=== PATIENT | male | born 1940 | race Caucasian/White ===

== ENCOUNTER 2020-02-12 17:04 | Inpatient (IN) | payer MEDICARE, BC ==
[~2020-02-12] VITALS: Ht 188 cm; Wt 76.2 kg
[~2020-02-12 17:04] MED LIST: atropine 1 MG/1 ML vial ONE; etomidate 2mg/ml inj. ONE; rocuronium 10mg/ml inj IV ONE
[2020-02-12] MEDS ORDERED: propofol 1000mg/100ml bottle 100 ML IV ONE (17:12)
[2020-02-12] MEDS ORDERED: midazolam 2 mg/2 ml injection ONE (17:12)
[2020-02-12] MEDS ORDERED: propofol 1000mg/100ml bottle 100 ML IV PRN ×2 (17:13→17:16)
[2020-02-12] MEDS ORDERED: MIDAZolam 5mg/ml 2ml vial IV ONE (17:15)
[2020-02-12] MEDS ORDERED: LIDOcaine 2% 10ml TOPICAL JELLY (Urojet) TP ONE (17:30)
[2020-02-12 17:42] LABS: BASOPHILS # (AUTO) 0.1 X10'3 (0-0.2); EOSINOPHILS # (AUTO) 0.2 X10'3 (0-0.9); EOSINOPHILS % (AUTO) 1.6 % (0-6); HEMATOCRIT 41.5 % (42.0-52.0); HEMOGLOBIN 13.2 g/dl (14.0-17.9); LYMPHOCYTES # (AUTO) 2.3 X10'3 (1.1-4.8); LYMPHOCYTES % (AUTO) 21.7 % (21-51); MEAN CORPUSCULAR HEMOGLOBIN 24.1 PG (27.0-31.0); MEAN CORPUSCULAR HGB CONC 31.9 g/dL (33.0-36.5); MEAN CORPUSCULAR VOLUME 75.6 FL (78-98); MEAN PLATELET VOLUME 9.9 FL (7.4-10.4); MONOCYTES % (AUTO) 9.6 % (2-12); NEUTROPHILS % (AUTO) 66.1 % (42-75); PLATELET COUNT 183 X10'3 (140-440); RED BLOOD COUNT 5.48 X10'6 (4.70-6.10); RED CELL DISTRIBUTION WIDTH 19.2 % (11.5-14.5); WHITE BLOOD COUNT 10.6 X10'3 (4.5-11.0)
[2020-02-12 17:50] LABS: ABG OXYGEN SATURATION 98.3 % (94-97); ABG PCO2 (T) 34.5 mmHg (35.0-48.0); ABG PO2 (T) 113.5 mmHg (75.0-100.0); FCOHb 1.3 % (0.0-3.9); FMetHb 0.1 % (0.0-1.5); FO2Hb 96.9 % (94-97); PATIENT TEMPERATURE 36.9; PEEP 5 cm H2O; RESPIRATORY RATE 18 b/min; TIDAL VOLUME 450 mL; TOTAL HEMOGLOBIN 13.3 G/dl (14.0-18.0)
[2020-02-12 17:51] LABS: PARTIAL THROMBOPLASTIN TIME 29 SECONDS (22-32)
[2020-02-12 18:03] LABS: ALANINE AMINOTRANSFERASE 45 U/L (12-78); ALBUMIN 2.4 G/DL (3.4-5.0); ALBUMIN/GLOBULIN RATIO 0.5 (1.1-1.5); ALKALINE PHOSPHATASE 129 IU/L (46-116); ANION GAP 7 (8-16); ASPARTATE AMINO TRANSFERASE 43 U/L (10-37); BILIRUBIN,TOTAL 1.3 MG/DL (0.1-1.0); BLOOD UREA NITROGEN 29 MG/DL (7-18); BUN/CREATININE RATIO 22.8 (5.4-32.0); CALCIUM 8.4 MG/DL (8.5-10.1); CHLORIDE 105 MMOL/L (99-107); CREATININE 1.27 MG/DL (0.60-1.10); ETHANOL < 0.010 GM/DL (0.0-0.010); GLUCOSE 113 MG/DL (70-104); MAGNESIUM 1.8 MG/DL (1.5-2.4); POTASSIUM 3.1 MMOL/L (3.5-5.1); SODIUM 140 MMOL/L (135-145); TOTAL CARBON DIOXIDE 28.2 MMOL/L (24-32); eGFR 55 ML/MIN
[2020-02-12 18:26] LABS: CLARITY,URINE SLIGHTLY CLOUDY (Clear); COLOR,URINE STRAW (Yellow); GLUCOSE, URINE NEGATIVE (Neg); KETONES,URINE NEGATIVE (Neg); LEUKOCYTE ESTERASE ,URINE NEGATIVE (Neg); NITRITES, URINE NEGATIVE (Neg); OCCULT BLOOD,URINE TRACE-INTACT (Neg); PROTEIN,URINE NEGATIVE (Neg); UROBILINOGEN,URINE 0.2 E.U/dL (0.2-1.0)
[2020-02-12 18:29] LABS: UA COLLECTION TYPE FOLEY CATH
[2020-02-12 18:31] LABS: HYALINE CASTS 0-3 /LPF (NEGATIVE); MUCUS STRANDS FEW /LPF (Neg); SQUAMOUS EPITHELIAL CELL,UR MODERATE /LPF (FEW)
[2020-02-12 18:32] LABS: BACTERIA,URINE FEW /HPF (Neg); WBC,URINE 0-4 /HPF (0-4)
[2020-02-12 18:33] LABS: URINE AMPHETAMINE SCREEN NEGATIVE (Neg); URINE BARBITUATE SCREEN NEGATIVE (Neg); URINE BENZODIAZEPINES SCREEN POSITIVE (Neg); URINE CANNABINOID SCREEN NEGATIVE (Neg); URINE COCAINE SCREEN NEGATIVE (Neg); URINE METHADONE SCREEN POSITIVE (Neg); URINE OPIATE SCREEN NEGATIVE (Neg); URINE PHENCYCLIDINE SCREEN NEGATIVE (Neg)
[2020-02-12 18:35] LABS: ANISOCYTOSIS 2+; MICROCYTOSIS 1+; PLATELET ESTIMATE NORMAL
--- NOTE | 2020-02-12 18:37 | NUR ---
Graeme ([facility]) [phone] [facility]
[2020-02-12] MEDS ORDERED: ASPI-1053 PO (19:03)
[2020-02-12] MEDS ORDERED: AMIO200T27 PO (19:03)
[2020-02-12] MEDS ORDERED: PREG150C PO (19:03)
[2020-02-12] MEDS ORDERED: LOSA50TA3 PO (19:03)
[2020-02-12] MEDS ORDERED: METH-603 PO (19:03)
[2020-02-12] MEDS ORDERED: FLO0.4C PO (19:03)
[2020-02-12] MEDS ORDERED: CARV6.253 PO (19:03)
[2020-02-12] MEDS ORDERED: APIX5TAB3 PO (19:03)
--- NOTE | 2020-02-12 19:34 | NUR ---
called out to CT to look at the patients central line, as it was oozing. Pressure held. ELENO Kimball with pt. Dr. Daniels informed. Labs reviewed.
--- NOTE | 2020-02-12 19:45 | NUR ---
PATIENT'S CENTRAL LINE WAS WEEPING BLOOD. DR RUTHERFORD IS AWARE. DRESSING CHANGE ORDERED.
--- NOTE | 2020-02-12 20:16 | NUR ---
LAC IV TAGADERM REMOVED, IV SITE CLEANSED AND FRESH TAGADERM APPLIED ALONG WITH A SL Y PORT TUBING. CENTRAL LINE DRESSING CHANGE TAKEN DOWN AND CLEANSED PER STERILE TECHNIQUE WITH A FRESH TAGADERM.
--- NOTE | 2020-02-12 20:36 | NUR ---
AND DAUGHTER AT THE [facility] SPEAKING WITH JUNE YANELIS
--- NOTE | 2020-02-12 20:37 | NUR ---
FROILAN VILLAGOMEZ( DAUGHTER) BEST CONTACT DT WIFES ROMEL
[2020-02-12] MEDS ORDERED: midazolam 100mg in NS 100ml 100 ML IV PRN (20:54)
[2020-02-12] MEDS ORDERED: acetaminophen 650mg rectal suppository RC PRN (20:55)
[2020-02-12] MEDS ORDERED: furosemide 10 MG/1 ML 10ml inj IV ONE (20:55)
[2020-02-12] MEDS ORDERED: acetaminophen 325mg tablet PO PRN ×2 (20:55)
[2020-02-12] MEDS ORDERED: ondansetron/PF 4mg/2ml inj IV PRN (20:55)
[2020-02-12] MEDS ORDERED: magnesium 2GM in 50ml NS 50 ML IV PRN (20:55)
[2020-02-12] MEDS ORDERED: pantoprazole 40 MG vial IV ONE (20:55)
[2020-02-12] MEDS ORDERED: amiodarone 200mg tablet PO SCH (21:05)
[2020-02-12] MEDS ORDERED: carvedilol 6.25mg tablet PO SCH (21:05)
[2020-02-12] MEDS ORDERED: apixaban 5mg tablet PO SCH (21:05)
[2020-02-12] MEDS ORDERED: methadone 10mg tablet PO PRN (21:10)
[2020-02-12 21:27] LABS: HEMOGLOBIN A1C 6.1 % (4.5-6.2)
[2020-02-12 21:50] VITALS: BP 147/104
[2020-02-12 22:00] VITALS: BP 133/93
--- NOTE | 2020-02-12 22:10 | NUR ---
RECEIVED REPORT FROM JHONNY JOHANSEN PRIOR TO PT BEING BROUGHT UP FROM ED AND WAS ABLE TO ASK QUESTIONS. PT ARRIVED TO CICU FROM ED AROUND 2139, TRANSFERRED TO PULMONARY BED, PLACED ON OUR MONITOR AND VENT. IVF INFUSING PER MD'S ORDERS. PT IS RESTLESS AND PULLING AT RESTRAINTS BUT MAKES EYE CONTACT, TITRATING PROPOFOL FOR VENTILATOR SYNCHRONY.
[2020-02-12] MEDS: magnesium 4gm in 100ml NS 100 ML IV PRN (22:21)
[2020-02-12] MEDS: potassium Cl 20mEq/100mL bag 100 ML IV PRN ×2 (22:22→23:38)
[2020-02-12 22:30] VITALS: BP 132/97
[2020-02-12] MEDS: FENTANYL-0.9 % NACL/PF 100 ML IV PRN (22:44)
[2020-02-12 23:00] VITALS: BP 127/91
[2020-02-12] MEDS ORDERED: albuterol 2.5 MG/3 ML nebule NEB SCH (23:00)
[2020-02-12] MEDS: ipratropium/albuterol 3ml nebule NEB SCH (23:14)
[2020-02-13] VITALS (28 sets, daily range): BP systolic 98–196; BP diastolic 58–111
[2020-02-13] MEDS ORDERED: DOPamine 400mg/D5W 250ml 250 ML IV ONE (00:42)
[2020-02-13] MEDS: DOPamine 400mg/D5W 250ml 250 ML IV SCH ×2 (00:49→16:59)
[2020-02-13] MEDS: potassium Cl 20mEq/100mL bag 100 ML IV PRN ×7 (00:49→16:39)
--- NOTE | 2020-02-13 01:00 | NUR ---
AROUND 40 THE PT CONVERTED FROM AFIB TO SINUS YOHAN WITH A RATE IN THE LOW 30's. ATROPINE WAS GIVEN EMERGENTLY WHICH BROUGHT HIS HEART RATE (HR) UP TO THE 40's. JUNE TREE SCOUT ARRIVED AT BEDSIDE AND ORDERED A DOPAMINE DRIP TO BE STARTED WHICH WAS DONE BRINGING THE PT'S HR UP TO THE 60's-80's NSR. DURING THE EPISODE OF BRADYCARDIA THE PT'S SBP DID NOT GO BELOW 90mmHg. WILL CONTINUE TO MONITOR
[2020-02-13] MEDS ORDERED: atropine 0.1mg/ml 10ml syringe IV ONE (01:35)
[2020-02-13] MEDS: ipratropium/albuterol 3ml nebule NEB SCH ×5 (03:30→20:45)
[2020-02-13 03:36] LABS: BASOPHILS # (AUTO) 0.1 X10'3 (0-0.2); BASOPHILS % (AUTO) 0.7 % (0-1); EOSINOPHILS # (AUTO) 0.1 X10'3 (0-0.9); EOSINOPHILS % (AUTO) 0.8 % (0-6); HEMATOCRIT 43.4 % (42.0-52.0); HEMOGLOBIN 13.9 g/dl (14.0-17.9); LYMPHOCYTES # (AUTO) 1.5 X10'3 (1.1-4.8); LYMPHOCYTES % (AUTO) 15.1 % (21-51); MEAN CORPUSCULAR HEMOGLOBIN 24.1 PG (27.0-31.0); MEAN CORPUSCULAR VOLUME 75.1 FL (78-98); MEAN PLATELET VOLUME 9.2 FL (7.4-10.4); MONOCYTES # (AUTO) 0.8 X10'3 (0-0.9); MONOCYTES % (AUTO) 7.5 % (2-12); NEUTROPHILS # (AUTO) 7.6 X10'3 (1.8-7.7); NEUTROPHILS % (AUTO) 75.9 % (42-75); PLATELET COUNT 174 X10'3 (140-440); RED BLOOD COUNT 5.77 X10'6 (4.70-6.10); RED CELL DISTRIBUTION WIDTH 19.2 % (11.5-14.5); WHITE BLOOD COUNT 10.1 X10'3 (4.5-11.0)
[2020-02-13 03:49] LABS: ALANINE AMINOTRANSFERASE 38 U/L (12-78); ALBUMIN 2.3 G/DL (3.4-5.0); ALBUMIN/GLOBULIN RATIO 0.5 (1.1-1.5); ALKALINE PHOSPHATASE 119 IU/L (46-116); ANION GAP 2 (8-16); ASPARTATE AMINO TRANSFERASE 29 U/L (10-37); BILIRUBIN,TOTAL 1.5 MG/DL (0.1-1.0); BLOOD UREA NITROGEN 22 MG/DL (7-18); BUN/CREATININE RATIO 23.9 (5.4-32.0); CALCIUM 8.2 MG/DL (8.5-10.1); CHLORIDE 104 MMOL/L (99-107); CREATININE 0.92 MG/DL (0.60-1.10); GLUCOSE 111 MG/DL (70-104); MAGNESIUM 2.6 MG/DL (1.5-2.4); POTASSIUM 4.4 MMOL/L (3.5-5.1); SODIUM 139 MMOL/L (135-145); TOTAL CARBON DIOXIDE 32.8 MMOL/L (24-32); TOTAL PROTEIN 6.9 G/DL (6.4-8.2); TROPONIN I < 0.04 NG/ML (0.0-0.05); eGFR 80 ML/MIN
[2020-02-13 03:56] LABS: ABG BASE EXCESS 7.4 mmol/L (-2.0-2.0); ABG HCO3 32.4 mmol/L (22.0-26.0); ABG OXYGEN SATURATION 91.9 % (94-97); ABG PCO2 (T) 45.1 mmHg (35.0-48.0); ALLEN'S TEST POSITIVE; FMetHb 0.1 % (0.0-1.5); FO2Hb 90.9 % (94-97); PATIENT TEMPERATURE 36.3; PEEP 5 cm H2O; RESPIRATORY RATE 14 b/min; TIDAL VOLUME 450 mL
[2020-02-13 04:06] LABS: PLATELET ESTIMATE NORMAL
[2020-02-13 04:07] LABS: ANISOCYTOSIS 2+; MICROCYTOSIS 1+
[2020-02-13] MEDS: normal saline 1000ml 1,000 ML IV SCH ×2 (04:16→14:10)
[2020-02-13 04:20] LABS: PARTIAL THROMBOPLASTIN TIME 31 SECONDS (22-32)
--- NOTE | 2020-02-13 06:15 | NUR ---
Patient in room CICU 2010. I have received report from RN and had the opportunity to ask questions and assume patient care.
[2020-02-13] MEDS ORDERED: acetaminophen 325mg/10.15ml oral unit dose solution OGT PRN ×2 (06:36→06:37)
--- NOTE | 2020-02-13 06:41 | NUR ---
Problems reprioritized. Patient report given, questions answered & plan of care reviewed with SHIRLENE JOHANSEN.
[2020-02-13] MEDS: docusate sodium 100mg/10ml UD cup OGT SCH ×2 (07:32→20:21)
[2020-02-13] MEDS: pantoprazole 40 MG vial IV SCH (07:32)
[2020-02-13] MEDS: pregabalin 75mg capsule OGT SCH ×2 (07:33→20:22)
[2020-02-13] MEDS: apixaban 5mg tablet OGT SCH ×2 (07:33→20:22)
[2020-02-13] MEDS: amiodarone 200mg tablet OGT SCH ×2 (07:34→20:00)
[2020-02-13] MEDS: tamsulosin 0.4mg capsule PO SCH ×2 (07:34→08:00)
[2020-02-13] MEDS ORDERED: aspirin 81mg tab.chew OGT SCH (08:00)
[2020-02-13] MEDS ORDERED: losartan 50mg tablet OGT SCH (08:00)
[2020-02-13] MEDS: FENTANYL-0.9 % NACL/PF 100 ML IV PRN (09:29)
--- NOTE | 2020-02-13 11:02 | NUR ---
Patient intubated in ED after cardiac arrest at home; per Ornamental Painter at rounds may extubate patient today. Patient with versed, fentanyl, dopamine; received lasix with 5 liters off; has low Juan Carlos of 11; R/L lower calf reddened; BLE 3+ edema. Recommend: 1. If patient not extubated and if with prolonged intubation may benefit from nutrition support with vital AF at 60 ml/hr 2. When extubated, advance diet as medically indicated to heart healthy 3. wt per rx Addendum: 02/13/20 at [address] Amended: Links added.
[2020-02-13 11:30] LABS: ALANINE AMINOTRANSFERASE 33 U/L (12-78); ALBUMIN/GLOBULIN RATIO 0.5 (1.1-1.5); ALKALINE PHOSPHATASE 103 IU/L (46-116); ANION GAP 4 (8-16); ASPARTATE AMINO TRANSFERASE 23 U/L (10-37); BILIRUBIN,TOTAL 1.6 MG/DL (0.1-1.0); BLOOD UREA NITROGEN 19 MG/DL (7-18); BUN/CREATININE RATIO 20.7 (5.4-32.0); CALCIUM 7.7 MG/DL (8.5-10.1); CHLORIDE 104 MMOL/L (99-107); CREATININE 0.92 MG/DL (0.60-1.10); GLUCOSE 96 MG/DL (70-104); PHOSPHORUS 2.9 MG/DL (2.3-4.5); POTASSIUM 3.3 MMOL/L (3.5-5.1); SODIUM 140 MMOL/L (135-145); TOTAL CARBON DIOXIDE 31.9 MMOL/L (24-32); TOTAL PROTEIN 6.3 G/DL (6.4-8.2); eGFR 80 ML/MIN
[2020-02-13] MEDS ORDERED: racepinephrine 11.25mg/0.5ml nebule NEB PRN (12:00)
[2020-02-13] MEDS ORDERED: ipratropium/albuterol 3ml nebule NEB PRN (12:00)
[2020-02-13] MEDS: magnesium 4gm in 100ml NS 100 ML IV PRN (12:38)
--- NOTE | 2020-02-13 13:15 | NUR ---
PT extubated at 1315. Placed on 2L NC. NO difficulties.
--- NOTE | 2020-02-13 18:18 | NUR ---
Problems reprioritized. Patient report given, questions answered & plan of care reviewed with CLAUDIA.
--- NOTE | 2020-02-13 18:54 | NUR ---
Patient in room CICU 2010. I have received report from Leena JOHANSEN and had the opportunity to ask questions and assume patient care.
[2020-02-13] MEDS ORDERED: amiodarone 150mg/dext, iso-os 100 ML IV ONE ×2 (19:43→19:50)
[2020-02-13] MEDS ORDERED: amiodarone/D5 360MG/200ML BAG 200 ML IV SCH (19:46)
--- NOTE | 2020-02-13 19:55 | NUR ---
Pt went into pulseless V-tach, limited code of no compressions. OR RN at bedside at start of event. pt was bagged to deliver breathes by RT. defibrillated patient at 200J 1x and ROSC achieved. ER MD arrived and patient achieved ROSC prior to arrival. Pt is A/O and able to follow commands. Pt speaking and reports no discomfort. will continue to frequent rounding and monitoring.
[2020-02-13 19:57] LABS: ALANINE AMINOTRANSFERASE 29 U/L (12-78); ALBUMIN 1.9 G/DL (3.4-5.0); ALBUMIN/GLOBULIN RATIO 0.5 (1.1-1.5); ALKALINE PHOSPHATASE 98 IU/L (46-116); ANION GAP 4 (8-16); ASPARTATE AMINO TRANSFERASE 19 U/L (10-37); BILIRUBIN,TOTAL 1.5 MG/DL (0.1-1.0); BLOOD UREA NITROGEN 19 MG/DL (7-18); BUN/CREATININE RATIO 18.1 (5.4-32.0); CALCIUM 7.8 MG/DL (8.5-10.1); CHLORIDE 105 MMOL/L (99-107); CREATININE 1.05 MG/DL (0.60-1.10); GLUCOSE 76 MG/DL (70-104); MAGNESIUM 2.8 MG/DL (1.5-2.4); POTASSIUM 4.6 MMOL/L (3.5-5.1); SODIUM 140 MMOL/L (135-145); TOTAL CARBON DIOXIDE 31.4 MMOL/L (24-32); TOTAL PROTEIN 5.9 G/DL (6.4-8.2); eGFR 68 ML/MIN
[2020-02-14] VITALS (24 sets, daily range): BP systolic 107–148; BP diastolic 56–76
[2020-02-14] MEDS: normal saline 1000ml 1,000 ML IV SCH ×2 (00:10→15:44)
[2020-02-14] MEDS: piperacillin/tazo 3.375gm/50ml 50 ML IV SCH ×3 (00:15→15:44)
[2020-02-14] MEDS ORDERED: mineral oil/petrolatum ophthal oint EACHEYE SCH (02:00)
[2020-02-14 02:46] LABS: BASOPHILS % (AUTO) 0.4 % (0-1); EOSINOPHILS % (AUTO) 0.2 % (0-6); HEMATOCRIT 36.6 % (42.0-52.0); HEMOGLOBIN 11.8 g/dl (14.0-17.9); LYMPHOCYTES # (AUTO) 1.1 X10'3 (1.1-4.8); LYMPHOCYTES % (AUTO) 9.5 % (21-51); MEAN CORPUSCULAR HEMOGLOBIN 24.3 PG (27.0-31.0); MEAN CORPUSCULAR HGB CONC 32.2 g/dL (33.0-36.5); MEAN CORPUSCULAR VOLUME 75.5 FL (78-98); MEAN PLATELET VOLUME 9.5 FL (7.4-10.4); MONOCYTES # (AUTO) 0.9 X10'3 (0-0.9); NEUTROPHILS # (AUTO) 9.2 X10'3 (1.8-7.7); NEUTROPHILS % (AUTO) 81.9 % (42-75); PLATELET COUNT 152 X10'3 (140-440); RED BLOOD COUNT 4.84 X10'6 (4.70-6.10); RED CELL DISTRIBUTION WIDTH 19.4 % (11.5-14.5); WHITE BLOOD COUNT 11.2 X10'3 (4.5-11.0)
[2020-02-14 02:57] LABS: ALANINE AMINOTRANSFERASE 24 U/L (12-78); ALBUMIN 1.8 G/DL (3.4-5.0); ALBUMIN/GLOBULIN RATIO 0.5 (1.1-1.5); ALKALINE PHOSPHATASE 89 IU/L (46-116); ANION GAP 4 (8-16); ASPARTATE AMINO TRANSFERASE 17 U/L (10-37); BILIRUBIN,TOTAL 1.2 MG/DL (0.1-1.0); BLOOD UREA NITROGEN 20 MG/DL (7-18); BUN/CREATININE RATIO 18.9 (5.4-32.0); CALCIUM 7.8 MG/DL (8.5-10.1); CHLORIDE 106 MMOL/L (99-107); CREATININE 1.06 MG/DL (0.60-1.10); GLUCOSE 89 MG/DL (70-104); MAGNESIUM 2.5 MG/DL (1.5-2.4); PHOSPHORUS 3.3 MG/DL (2.3-4.5); SODIUM 141 MMOL/L (135-145); TOTAL CARBON DIOXIDE 30.9 MMOL/L (24-32); TOTAL PROTEIN 5.6 G/DL (6.4-8.2); eGFR 68 ML/MIN
[2020-02-14 03:33] LABS: ANISOCYTOSIS 2+; ELLIPTOCYTES FEW; MICROCYTOSIS 1+; PLATELET ESTIMATE NORMAL; POLYCHROMASIA FEW
[2020-02-14] MEDS: potassium Cl 20mEq/100mL bag 100 ML IV PRN ×2 (03:38→06:00)
[2020-02-14] MEDS: ipratropium/albuterol 3ml nebule NEB SCH ×4 (04:17→20:52)
--- NOTE | 2020-02-14 06:25 | NUR ---
Problems reprioritized. Patient report given, questions answered & plan of care reviewed with SHIRLENE JOHANSEN.
[2020-02-14] MEDS ORDERED: acetaminophen 325mg/10.15ml oral unit dose solution PO PRN ×2 (08:29)
[2020-02-14] MEDS ORDERED: amiodarone 200mg tablet PO SCH (08:30)
[2020-02-14] MEDS ORDERED: apixaban 5mg tablet PO SCH (08:30)
[2020-02-14] MEDS ORDERED: aspirin 81mg tab.chew PO SCH (08:31)
[2020-02-14] MEDS: amiodarone 200mg tablet PO SCH ×3 (08:32→22:30)
[2020-02-14] MEDS: docusate sodium 100mg/10ml UD cup PO SCH ×2 (08:37→20:25)
[2020-02-14] MEDS: aspirin 81mg tab.chew PO SCH (08:37)
[2020-02-14] MEDS: tamsulosin 0.4mg capsule PO SCH (08:42)
[2020-02-14] MEDS: pantoprazole 40 MG vial IV SCH (08:42)
[2020-02-14] MEDS: losartan 50mg tablet PO SCH (08:43)
[2020-02-14] MEDS: pregabalin 75mg capsule PO SCH ×2 (08:43→20:12)
[2020-02-14] MEDS: apixaban 5mg tablet PO SCH ×2 (08:54→20:11)
[2020-02-14] MEDS: DOPamine 400mg/D5W 250ml 250 ML IV SCH (09:08)
[2020-02-14] MEDS: lactobacillus rhamnosus 10,000 MMU CELLS/CAPSULE PO SCH (20:11)
[2020-02-14] MEDS ORDERED: lactulose 20gm/30ml cup PO PRN (20:55)
[2020-02-14] MEDS ORDERED: bisacodyl 10mg suppository rectal RC PRN (20:55)
--- NOTE | 2020-02-14 23:21 | NUR ---
Dr Rocio Davies phoned nurses station. Patient to have AICD placed in AM. Physician updated.
[2020-02-14 23:29] LABS: MAGNESIUM 1.8 MG/DL (1.5-2.4); POTASSIUM 3.6 MMOL/L (3.5-5.1)
[2020-02-15] VITALS (25 sets, daily range): BP systolic 123–169; BP diastolic 7–87
[2020-02-15] MEDS: piperacillin/tazo 3.375gm/50ml 50 ML IV SCH ×4 (00:04→23:45)
[2020-02-15] MEDS: potassium Cl 20mEq/100mL bag 100 ML IV PRN ×5 (00:04→09:17)
[2020-02-15] MEDS: DOPamine 400mg/D5W 250ml 250 ML IV SCH (01:17)
[2020-02-15] MEDS: normal saline 1000ml 1,000 ML IV SCH ×3 (01:19→15:50)
[2020-02-15] MEDS: magnesium 4gm in 100ml NS 100 ML IV PRN (01:57)
[2020-02-15] MEDS: ipratropium/albuterol 3ml nebule NEB SCH ×4 (02:56→20:41)
[2020-02-15 05:47] LABS: BASOPHILS # (AUTO) 0.1 X10'3 (0-0.2); BASOPHILS % (AUTO) 0.6 % (0-1); EOSINOPHILS # (AUTO) 0.2 X10'3 (0-0.9); EOSINOPHILS % (AUTO) 2.1 % (0-6); HEMATOCRIT 35.1 % (42.0-52.0); HEMOGLOBIN 11.4 g/dl (14.0-17.9); LYMPHOCYTES # (AUTO) 1.5 X10'3 (1.1-4.8); LYMPHOCYTES % (AUTO) 16.8 % (21-51); MEAN CORPUSCULAR HEMOGLOBIN 24.3 PG (27.0-31.0); MEAN CORPUSCULAR HGB CONC 32.3 g/dL (33.0-36.5); MEAN CORPUSCULAR VOLUME 75.2 FL (78-98); MEAN PLATELET VOLUME 9.5 FL (7.4-10.4); MONOCYTES # (AUTO) 0.8 X10'3 (0-0.9); MONOCYTES % (AUTO) 8.4 % (2-12); NEUTROPHILS # (AUTO) 6.4 X10'3 (1.8-7.7); NEUTROPHILS % (AUTO) 72.1 % (42-75); PLATELET COUNT 159 X10'3 (140-440); RED BLOOD COUNT 4.67 X10'6 (4.70-6.10); RED CELL DISTRIBUTION WIDTH 19.9 % (11.5-14.5); WHITE BLOOD COUNT 8.9 X10'3 (4.5-11.0)
[2020-02-15 05:56] LABS: PARTIAL THROMBOPLASTIN TIME 33 SECONDS (22-32)
[2020-02-15 06:34] LABS: ALANINE AMINOTRANSFERASE 25 U/L (12-78); ALBUMIN 1.7 G/DL (3.4-5.0); ALBUMIN/GLOBULIN RATIO 0.4 (1.1-1.5); ALKALINE PHOSPHATASE 90 IU/L (46-116); ANION GAP 5 (8-16); ASPARTATE AMINO TRANSFERASE 24 U/L (10-37); BILIRUBIN,TOTAL 1.2 MG/DL (0.1-1.0); BLOOD UREA NITROGEN 18 MG/DL (7-18); BUN/CREATININE RATIO 20.5 (5.4-32.0); CALCIUM 7.6 MG/DL (8.5-10.1); CHLORIDE 107 MMOL/L (99-107); CREATININE 0.88 MG/DL (0.60-1.10); GLUCOSE 73 MG/DL (70-104); MAGNESIUM 2.5 MG/DL (1.5-2.4); PHOSPHORUS 2.3 MG/DL (2.3-4.5); POTASSIUM 4.3 MMOL/L (3.5-5.1); SODIUM 139 MMOL/L (135-145); TOTAL CARBON DIOXIDE 26.7 MMOL/L (24-32); TOTAL PROTEIN 5.6 G/DL (6.4-8.2); eGFR 84 ML/MIN
--- NOTE | 2020-02-15 06:37 | NUR ---
Problems reprioritized. Patient report given, questions answered & plan of care reviewed with Dayanara JOHANSEN.
--- NOTE | 2020-02-15 06:40 | NUR ---
Patient in room [facility] 2010. I have received report from Tanvi JOHANSEN and had the opportunity to ask questions and assume patient care. Addendum: 02/15/20 at 0640 by Dayanara Haddad RN Amended: Links added.
[2020-02-15 07:30] LABS: HYPOCHROMASIA 1+; PLATELET ESTIMATE NORMAL
[2020-02-15 07:31] LABS: ANISOCYTOSIS 2+; ELLIPTOCYTES FEW; MICROCYTOSIS 1+; SCHISTOCYTES FEW; TARGET CELLS FEW
[2020-02-15 07:32] LABS: TEAR DROP CELLS FEW
[2020-02-15] MEDS: amiodarone 200mg tablet PO SCH ×2 (07:35→19:48)
[2020-02-15] MEDS: pantoprazole 40 MG vial IV SCH (07:35)
[2020-02-15] MEDS: docusate sodium 100mg/10ml UD cup PO SCH ×2 (07:35→19:47)
[2020-02-15] MEDS: aspirin 81mg tab.chew PO SCH (07:35)
[2020-02-15] MEDS: lactobacillus rhamnosus 10,000 MMU CELLS/CAPSULE PO SCH ×2 (07:36→19:47)
[2020-02-15] MEDS: tamsulosin 0.4mg capsule PO SCH (07:36)
[2020-02-15] MEDS: losartan 50mg tablet PO SCH (07:36)
[2020-02-15] MEDS: apixaban 5mg tablet PO SCH ×2 (07:36→19:48)
[2020-02-15] MEDS: pregabalin 75mg capsule PO SCH ×2 (07:36→19:47)
--- NOTE | 2020-02-15 08:37 | NUR ---
Dr. Lu Davies called and told RN he would be in at 1000 to talk about AICD placement with pt. Pt's daughter Angelita called twice this morning to get updated from RN. RN told Angelita she would ask Dr. Davies to call her and update her as well.
[2020-02-15] MEDS ORDERED: ceFAZolin 2gm in dextrose, iso 50 ML IV ONE (09:36)
[2020-02-15] MEDS ORDERED: LIDOcaine 1% W/epiNEPHrine 1:100,000 20ml vial ONE (09:36)
[2020-02-15] MEDS ORDERED: ceFAZolin 1000mg inj ONE (09:36)
[2020-02-15] MEDS ORDERED: fentaNYL/PF 50MCG/1 ML 2ML syringe ONE ×2 (09:36→10:30)
[2020-02-15] MEDS ORDERED: midazolam 2 mg/2 ml injection ONE ×2 (09:36→10:30)
--- NOTE | 2020-02-15 09:50 | NUR ---
Dr. Davies was in to talk with pt. RN notified him that dtr. Goldstein wanted a phone call but pt. was adamant that he would call her and the doctor did not need to. Pt. to go to cardiac catheterization technologist soon.
--- NOTE | 2020-02-15 09:57 | NUR ---
foundry laborer coreroom nurses here to take pt. to curb and gutter laborer for AICD placement.
--- NOTE | 2020-02-15 10:00 | NUR ---
To chemistry laboratory technician via bed.
--- NOTE | 2020-02-15 11:30 | NUR ---
Pt. back from laborer rags. Dressing to left upper chest clean and dry. Pt. is paced at 60bpm. VSS. Awake and alert. Warm blankets, and cell phone provided to pt. per his request. Arm sling to left UE.
--- NOTE | 2020-02-15 18:16 | NUR ---
Problems reprioritized. Patient report given, questions answered & plan of care reviewed with Alaina QUINTERO RN.
--- NOTE | 2020-02-15 18:24 | NUR ---
Patient in room CICU 2010. I have received report from Ramone, and had the opportunity to ask questions and assume patient care.
[2020-02-15] MEDS: cephalexin 500mg capsule PO SCH (19:49)
[2020-02-16] VITALS (19 sets, daily range): BP systolic 107–167; BP diastolic 62–96
[2020-02-16] MEDS: normal saline 1000ml 1,000 ML IV SCH ×3 (01:34→22:10)
[2020-02-16] MEDS: ipratropium/albuterol 3ml nebule NEB SCH ×4 (02:52→20:25)
[2020-02-16 03:20] LABS: BASOPHILS % (AUTO) 0.6 % (0-1); EOSINOPHILS # (AUTO) 0.3 X10'3 (0-0.9); EOSINOPHILS % (AUTO) 3.3 % (0-6); HEMATOCRIT 36.3 % (42.0-52.0); HEMOGLOBIN 11.8 g/dl (14.0-17.9); LYMPHOCYTES # (AUTO) 1.5 X10'3 (1.1-4.8); MEAN CORPUSCULAR HEMOGLOBIN 24.6 PG (27.0-31.0); MEAN CORPUSCULAR HGB CONC 32.5 g/dL (33.0-36.5); MEAN CORPUSCULAR VOLUME 75.8 FL (78-98); MEAN PLATELET VOLUME 9.5 FL (7.4-10.4); MONOCYTES # (AUTO) 0.7 X10'3 (0-0.9); MONOCYTES % (AUTO) 9.1 % (2-12); NEUTROPHILS # (AUTO) 5.1 X10'3 (1.8-7.7); PLATELET COUNT 168 X10'3 (140-440); RED BLOOD COUNT 4.79 X10'6 (4.70-6.10); WHITE BLOOD COUNT 7.6 X10'3 (4.5-11.0)
[2020-02-16 03:35] LABS: ALANINE AMINOTRANSFERASE 21 U/L (12-78); ALBUMIN 1.7 G/DL (3.4-5.0); ALBUMIN/GLOBULIN RATIO 0.4 (1.1-1.5); ALKALINE PHOSPHATASE 89 IU/L (46-116); ANION GAP 4 (8-16); ASPARTATE AMINO TRANSFERASE 26 U/L (10-37); BILIRUBIN,TOTAL 1.2 MG/DL (0.1-1.0); BLOOD UREA NITROGEN 14 MG/DL (7-18); BUN/CREATININE RATIO 13.9 (5.4-32.0); CALCIUM 7.6 MG/DL (8.5-10.1); CHLORIDE 106 MMOL/L (99-107); CREATININE 1.01 MG/DL (0.60-1.10); GLUCOSE 71 MG/DL (70-104); POTASSIUM 3.8 MMOL/L (3.5-5.1); SODIUM 139 MMOL/L (135-145); TOTAL CARBON DIOXIDE 28.6 MMOL/L (24-32); TOTAL PROTEIN 5.6 G/DL (6.4-8.2); eGFR 71 ML/MIN
--- NOTE | 2020-02-16 06:15 | NUR ---
Patient in room CICU 2010. I have received report from danna Foley and had the opportunity to ask questions and assume patient care.
--- NOTE | 2020-02-16 06:29 | NUR ---
Problems reprioritized. Patient report given to Estrella, questions answered & plan of care reviewed with .
[2020-02-16] MEDS: pantoprazole 40mg Tablet.DR PO SCH (07:51)
[2020-02-16] MEDS: cephalexin 500mg capsule PO SCH ×2 (08:00→19:29)
[2020-02-16] MEDS: lactobacillus rhamnosus 10,000 MMU CELLS/CAPSULE PO SCH ×2 (08:50→19:27)
[2020-02-16] MEDS: amiodarone 200mg tablet PO SCH ×2 (08:50→19:27)
[2020-02-16] MEDS: losartan 50mg tablet PO SCH (08:50)
[2020-02-16] MEDS: apixaban 5mg tablet PO SCH ×2 (08:51→19:29)
[2020-02-16] MEDS: aspirin 81mg tab.chew PO SCH (08:51)
[2020-02-16] MEDS: docusate sodium 100mg/10ml UD cup PO SCH ×2 (08:51→19:27)
[2020-02-16] MEDS: tamsulosin 0.4mg capsule PO SCH (08:54)
[2020-02-16] MEDS: piperacillin/tazo 3.375gm/50ml 50 ML IV SCH ×3 (08:54→23:23)
[2020-02-16] MEDS: pregabalin 75mg capsule PO SCH ×2 (08:54→19:30)
[2020-02-16] MEDS: methadone 10mg tablet PO SCH ×4 (12:00→23:22)
--- NOTE | 2020-02-16 12:28 | NUR ---
Reassessment: Pt s/p extubation and pacemaker advanced to regular/thin diet per VESSEL SLAG WORKER recs. PO 75-100% recent meals fluctuating this admit decent given age. No BM yet this admit though receiving lactulose and colace. No nutrition concerns at this time. Will continue to monitor. Recommend: 1. continue regular diet 2. monitor for ONS needs 3. routine bowel care 4. weekly wts Addendum: 02/16/20 at [address] Amended: Links added.
--- NOTE | 2020-02-16 14:30 | NUR ---
F/C initially with clear yellow urine turning pink approx 1230,now dark red,cont with adequate amounts, aware,repeating earlier order to d/c f/c which was removed w/o problem @1430
--- NOTE | 2020-02-16 15:21 | NUR ---
Received report from Zahra JOHANSEN, patient will be admitted to room 3015B.
--- NOTE | 2020-02-16 15:22 | NUR ---
Problems reprioritized. Patient report given, questions answered & plan of care reviewed with PatyRECTIFYING OPERATOR.
--- NOTE | 2020-02-16 16:18 | NUR ---
Patient transferred to room 3015B. 2 RN skin check done, and vital signs taken. BP162/91, HR 60, O2 98% RA, RR 15, pain 0/10. Informed by ELENO Sweeney that patient voided 100 cc urine with bright red blood present. Dr Garces is aware of that already and patient said this is not new, his primary doctors are aware as well, and only to notify MD if clots are present. Patient stable and has no complaints at this time
--- NOTE | 2020-02-16 16:58 | NUR ---
I have reviewed and agree with physical assessment of Zahra JOHANSEN
--- NOTE | 2020-02-16 18:14 | NUR ---
Problems reprioritized. Patient report given, questions answered & plan of care reviewed with Juliana JOHANSEN and Linnea JOHANSEN.
[2020-02-16] MEDS: potassium Cl 20mEq/100mL bag 100 ML IV PRN ×2 (21:15→23:22)
[2020-02-17] VITALS (7 sets, daily range): BP systolic 121–180; BP diastolic 71–95
[2020-02-17] MEDS: ipratropium/albuterol 3ml nebule NEB SCH ×3 (02:18→16:20)
[2020-02-17] MEDS: methadone 10mg tablet PO SCH ×5 (03:46→20:11)
[2020-02-17 05:13] LABS: BASOPHILS % (AUTO) 0.7 % (0-1); EOSINOPHILS # (AUTO) 0.4 X10'3 (0-0.9); EOSINOPHILS % (AUTO) 5.7 % (0-6); HEMATOCRIT 36.1 % (42.0-52.0); HEMOGLOBIN 11.4 g/dl (14.0-17.9); LYMPHOCYTES # (AUTO) 1.5 X10'3 (1.1-4.8); LYMPHOCYTES % (AUTO) 20.6 % (21-51); MEAN CORPUSCULAR HGB CONC 31.6 g/dL (33.0-36.5); MEAN CORPUSCULAR VOLUME 75.9 FL (78-98); MEAN PLATELET VOLUME 9.4 FL (7.4-10.4); MONOCYTES # (AUTO) 0.7 X10'3 (0-0.9); MONOCYTES % (AUTO) 9.8 % (2-12); NEUTROPHILS # (AUTO) 4.5 X10'3 (1.8-7.7); NEUTROPHILS % (AUTO) 63.2 % (42-75); PLATELET COUNT 159 X10'3 (140-440); RED BLOOD COUNT 4.75 X10'6 (4.70-6.10); RED CELL DISTRIBUTION WIDTH 20.3 % (11.5-14.5); WHITE BLOOD COUNT 7.1 X10'3 (4.5-11.0)
--- NOTE | 2020-02-17 05:18 | NUR ---
Patient in room PCU 3015. I have received report from Paty and had the opportunity to ask questions and assume patient care.
--- NOTE | 2020-02-17 05:22 | NUR ---
Orientee documentation: I have reviewed and agree with all interventions, assessments performed and documented by Linnea JOHANSEN. Orientee Medication Administration: For this medication-pass time frame, all medication were reviewed, dispensed, administered and documented per hospital policy by Linnea JOHANSEN.
[2020-02-17 05:29] LABS: ALANINE AMINOTRANSFERASE 25 U/L (12-78); ALBUMIN 1.9 G/DL (3.4-5.0); ALBUMIN/GLOBULIN RATIO 0.5 (1.1-1.5); ALKALINE PHOSPHATASE 90 IU/L (46-116); ANION GAP 5 (8-16); ASPARTATE AMINO TRANSFERASE 25 U/L (10-37); BILIRUBIN,TOTAL 1.3 MG/DL (0.1-1.0); BLOOD UREA NITROGEN 13 MG/DL (7-18); BUN/CREATININE RATIO 10.5 (5.4-32.0); CALCIUM 7.9 MG/DL (8.5-10.1); CHLORIDE 107 MMOL/L (99-107); CREATININE 1.24 MG/DL (0.60-1.10); GLUCOSE 75 MG/DL (70-104); MAGNESIUM 1.9 MG/DL (1.5-2.4); POTASSIUM 3.6 MMOL/L (3.5-5.1); SODIUM 140 MMOL/L (135-145); TOTAL CARBON DIOXIDE 28.1 MMOL/L (24-32); TOTAL PROTEIN 5.8 G/DL (6.4-8.2); eGFR 56 ML/MIN
--- NOTE | 2020-02-17 06:12 | NUR ---
Problems reprioritized. Patient report given, questions answered & plan of care reviewed with jace JOHANSEN.
--- NOTE | 2020-02-17 06:15 | NUR ---
Problems reprioritized. Patient report given, questions answered & plan of care reviewed with Paty.
--- NOTE | 2020-02-17 06:30 | NUR ---
Patient in room PCU 3015B. I have received report from Juliana JOHANSEN and Linnea JOHANSEN and had the opportunity to ask questions and assume patient care.
[2020-02-17] MEDS ORDERED: potassium Cl 20 mEq SR tablet PO PRN (07:30)
[2020-02-17] MEDS: piperacillin/tazo 3.375gm/50ml 50 ML IV SCH ×2 (07:32→16:35)
[2020-02-17] MEDS: cephalexin 500mg capsule PO SCH ×2 (07:32→20:11)
[2020-02-17] MEDS: aspirin 81mg tab.chew PO SCH (07:32)
[2020-02-17] MEDS: pantoprazole 40mg Tablet.DR PO SCH (07:32)
[2020-02-17] MEDS: docusate sodium 100mg/10ml UD cup PO SCH ×2 (07:32→20:11)
[2020-02-17] MEDS: lactobacillus rhamnosus 10,000 MMU CELLS/CAPSULE PO SCH ×2 (07:32→20:11)
[2020-02-17] MEDS: amiodarone 200mg tablet PO SCH ×2 (07:32→20:11)
[2020-02-17] MEDS: pregabalin 75mg capsule PO SCH ×2 (07:32→20:11)
[2020-02-17] MEDS: apixaban 5mg tablet PO SCH ×2 (07:32→20:11)
[2020-02-17] MEDS: losartan 50mg tablet PO SCH (07:33)
[2020-02-17] MEDS: tamsulosin 0.4mg capsule PO SCH (07:33)
[2020-02-17 07:41] LABS: MICROCYTOSIS 1+; PLATELET ESTIMATE NORMAL
[2020-02-17 07:43] LABS: ANISOCYTOSIS 1+
[2020-02-17] MEDS: normal saline 1000ml 1,000 ML IV SCH (08:10)
[2020-02-17] MEDS: potassium Cl 20 mEq SR tablet PO PRN ×3 (08:11→12:20)
--- NOTE | 2020-02-17 10:18 | NUR ---
Gave K dur 2 hours after the first protocol dose, as the RN changed the order to be given every [address] Garces. Called pharmacy to let them know the dose was not given early but within the order instructions.
--- NOTE | 2020-02-17 12:34 | NUR ---
Paged Dr Mitchell PAGER ID: [phone] MESSAGE: Paty welsh [phone], [address] [id number]. FYI forgot to mention to you that patient has blood in urine (no clots). This is not new for pt, sees Dr James, urologist. Mata was removed yesterday. Just wanted to mention in case you were unaware
--- NOTE | 2020-02-17 15:29 | NUR ---
Paged Dr Mitchell PAGER ID: [phone] MESSAGE: Paty welsh [phone]. [address] [id number]. Urine continues to be quite bloody and pt says he feels a clot (pt says has happened before). Pt requesting to speak to you and you can call me and I can further explain scenario. Thank you!
[2020-02-17] MEDS ORDERED: LACT1CAP26 PO (15:39)
[2020-02-17] MEDS ORDERED: PANT40TA4 PO (15:39)
[2020-02-17] MEDS ORDERED: AMOX-419 PO (15:39)
--- NOTE | 2020-02-17 16:29 | NUR ---
Paged PAGER ID: [phone] MESSAGE: Paty DONNELLY. [address]. Pt is now having concerns about discharge and wants to speak to you specifically. Thank you!
--- NOTE | 2020-02-17 16:55 | NUR ---
Spoke to Dr Mitchell regarding blood in urine. Told him that this is not new, and that he sees his PCP Dr Stone and Dr James (urologist). Pt is clinically stable otherwise and MD stated he planned to discharge him and have him followup with his urologist this week. Patient was in agreement with that plan initially. However, spoke to pt again and he is expressing concerns that his clots may form again and feels one, which will cause him severe pain and issues with voiding as it has in the past. Currently, patient has voided over 1000 cc. Pt asked to speak with Dr Mitchell as he in concerned that as soon as he discharges, he will have to come back to ER to have a post placed if discomfort/voiding issues worsen. Paged Dr Mitchell asking to come speak with patient. Pt's Janeth called me and told me that about 6 years ago this same scenario happened and he had to come to ER and a post catheter w/ coude was placed and patient was sent home with catheter, and that she wants patient to come home and that she can help manage catheter until patient sees his primary. Following up on that story, pt expressed to me that Dr Stone has removed catheter for him after keeping in for about 3-4 days. Told industrial maintenance technician Devi about the situation and she paged Dr Mitchell over phone at 1650. Patient is now refusing to discharge until he speaks to MD and/or a post is placed before discharge. Will page MD again to make aware that pt is asking to speak to him.
--- NOTE | 2020-02-17 17:15 | NUR ---
Dr Mitchell said I can place post and discharge patient. Will place order and continue with discharge Addendum: 02/17/20 at 1802 by Paty Daly RN Patient also advised by to have post catheter removed ANAMARIA by PCP if he is unable to get appt with his urologist. Patient educated about risk of infection
[2020-02-17] MEDS ORDERED: LIDOcaine 2% 10ml TOPICAL JELLY (Urojet) TP ONE (17:20)
--- NOTE | 2020-02-17 18:27 | NUR ---
Problems reprioritized. Patient report given, questions answered & plan of care reviewed with Merlin RN.
--- NOTE | 2020-02-19 14:59 | NUR ---
Case Management DC follow up: Spoke with pt spouse, Janeth Pulido, via telephone. Status post:Pacer r/t ALOC. reports for pt: " doing very well" "thank you for the good care, everyone from the ER and the rest of the staff has such great communication" pt states BLE has lessened. Denies: acute/continuous cp, emergent SOB, respiratory distress, acute general pain, N/V, syncope episodes, SALTER, blurry vision, FAST, abd pain/distension, constipation, diarrhea, melena, hematochezia, bladder pain, dysuria, polyuria, hematuria, retention, urgency, unexplained bleeding/bruising,fever. Seth for pt s/s infection to pacer site. Education provided re orthostatic hypotension protocol as precaution. Verbalizes understanding of s/s that would warrant 03-05/ER visit for evaluation. Pt verbalized understanding of new Rx: Augmentin, culturelle, protonix, why prescribed; continues current Rx, taking as ordered, denies ase r/t polypharmacy. Verbalizes compliance w/DC aftercare. Acknowledges need to confirm/schedule/keep follow up appts: PCP/[facility] 02/18/20, Dr Davies 03/03/20, pt continues using L arm sling until appt. Dr James 02/26/20 r/t prostate, FC in place until urine is clear. Needs met, questions/concerns answered at [place], no further questions at this time. Addendum: 02/19/20 at 1509 by Marybel Dias RN Case management DC follow up: [facility] 02/19/20 intake/assessment
== END 2020-02-17 20:22 | disposition home health service (06) | DRG 226 ==
LOC: ER 17:04 → ED HOLD 20:54 → CICU 2S 21:47 → PCU 3S 02-16 16:22
PROVIDERS: ADMIT Internal Medicine Critical Care Medicine; ATTEND Internal Medicine Critical Care Medicine
PROC: 5A1935Z Respiratory Ventilation, Less than 24 Consecutive Hours (ICD-10-PCS; principal; 2020-02-12)
PROC: 0BH17EZ Insertion of Endotracheal Airway into Trachea, Via Natural or Artificial Opening (ICD-10-PCS; 2020-02-12)
PROC: 02HV33Z Insertion of Infusion Device into Superior Vena Cava, Percutaneous Approach (ICD-10-PCS; 2020-02-12)
PROC: B548ZZA Ultrasonography of Superior Vena Cava, Guidance (ICD-10-PCS; 2020-02-12)
PROC: 0D9670Z Drainage of Stomach with Drainage Device, Via Natural or Artificial Opening (ICD-10-PCS; 2020-02-12)
PROC: 5A2204Z Restoration of Cardiac Rhythm, Single (ICD-10-PCS; 2020-02-13)
PROC: 0JH608Z Insertion of Defibrillator Generator into Chest Subcutaneous Tissue and Fascia, Open Approach (ICD-10-PCS; 2020-02-15)
PROC: 02HK3KZ Insertion of Defibrillator Lead into Right Ventricle, Percutaneous Approach (ICD-10-PCS; 2020-02-15)
PROC: 02H63KZ Insertion of Defibrillator Lead into Right Atrium, Percutaneous Approach (ICD-10-PCS; 2020-02-15)
DX: I48.0 Paroxysmal atrial fibrillation (principal); J96.00 Acute respiratory failure, unspecified whether with hypoxia or hypercapnia; I11.0 Hypertensive heart disease with heart failure; I46.9 Cardiac arrest, cause unspecified; I47.2 Ventricular tachycardia; I42.8 Other cardiomyopathies; Z66 Do not resuscitate; B96.1 Klebsiella pneumoniae [K. pneumoniae] as the cause of diseases classified elsewhere; G62.9 Polyneuropathy, unspecified; E87.6 Hypokalemia; N28.9 Disorder of kidney and ureter, unspecified; F17.210 Nicotine dependence, cigarettes, uncomplicated; Z85.46 Personal history of malignant neoplasm of prostate; Z79.899 Other long term (current) drug therapy; I50.9 Heart failure, unspecified
CPT/HCPCS: 31500; 33249; 36415; 36556; 36600; 70450; 71045; 80053; 80305; 80320; 81001; 82803; 82948; 83036; 83605; 83735; 83880; 84100; 84132; 84145; 84439; 84443; 84484; 85008; 85018; 85025; 85610; 85730; 87040; 87070; 87077; 87081; 87186; 92508; 92616; 93005; 93306; 93926; 93971; 94002; 94003; 94640; 94760; 97110; 97116; 97530; 99152; 99153; 99291; A4620; C1721; C1777; C1898; C9113; G0378; J0461; J0690; J1265; J1940; J2250; J2543; J2704; J3010; J3475; J3480; J7030